=== PATIENT | male | born 1955 | race Caucasian/White ===

== ENCOUNTER → 2017-03-16 | Outpatient (CLI) | payer BC, OTHER ==
[~2017-03-16] MED LIST: AMLO10TA2 PO; BENA20TA2 PO; GABA300C10 PO; METF500T4 PO
[2017-03-16 10:46] LABS: HEMATOCRIT 47.5 % (39.2-51.8); HEMOGLOBIN 16.1 g/dL (13.7-18.0); WHITE BLOOD COUNT 7.5 x10^3/uL (3.4-10)
[2017-03-16 11:00] LABS: ASPARTATE AMINO TRANSFERASE 18 U/L (15-37); BLOOD UREA NITROGEN 13 mg/dL (7-18)
== END | disposition home or self-care (01) ==
LOC: STAR 09:15
PROVIDERS: ATTEND Orthopaedic Surgery
DX: Z01.818 Encounter for other preprocedural examination (principal); M17.12 Unilateral primary osteoarthritis, left knee; J45.909 Unspecified asthma, uncomplicated; E11.9 Type 2 diabetes mellitus without complications; M81.0 Age-related osteoporosis without current pathological fracture; R79.1 Abnormal coagulation profile
CPT/HCPCS: 36415; 80053; 83036; 85025; 85610; 85730; 87081; 87147; 93005

== ENCOUNTER 2017-03-25 05:22 | Inpatient (IN) | payer BC ==
[~2017-03-25] VITALS: Ht 177.8 cm; Wt 99.7 kg
[2017-03-25] MEDS ORDERED: LACTATED RINGERS 1,000 ML IV SCH (05:57)
[2017-03-25] MEDS ORDERED: VANCOMYCIN PER PHARMACY MC STA (06:01)
[2017-03-25 06:05] VITALS: BP 125/81
[2017-03-25] MEDS ORDERED: OxyconTIN ER 10 MG TAB.ER ONE (06:11)
[2017-03-25] MEDS ORDERED: DEXAMETHASONE 4 MG/ML, 1ML ONE (06:24)
[2017-03-25] MEDS ORDERED: SUCCINYLCHOLINE 20 MG/ML, 10ML ONE (06:24)
[2017-03-25] MEDS ORDERED: ONDANSETRON 2MG/ML, 2ML ONE (06:24)
[2017-03-25] MEDS ORDERED: PROPOFOL 10 MG/ML, 20ML ONE ×2 (06:24)
[2017-03-25] MEDS ORDERED: MIDAZOLAM 1 MG/ML, 2ML ONE (06:25)
[2017-03-25] MEDS ORDERED: FENTANYL PF 250 MCG/5ML ONE (06:25)
[2017-03-25] MEDS ORDERED: VANCOMYCIN 1,900 MG in SODIUM CHLORIDE 0.9% 250 ML IV ONE (06:30)
[2017-03-25] MEDS ORDERED: OxyconTIN ER 10 MG TAB.ER PO ONE (06:30)
[2017-03-25] MEDS ORDERED: KETOROLAC 60 MG/2 ML ONE (06:39)
[2017-03-25] MEDS ORDERED: VANCOMYCIN 1,000 MG ONE (06:40)
[2017-03-25] MEDS ORDERED: ROPIvacaine/PF 0.5%, 30 ML ONE (06:40)
[2017-03-25] MEDS ORDERED: TRANEXAMIC ACID 100 MG/ML, 10ML ONE ×2 (06:40)
[2017-03-25] MEDS ORDERED: cloniDINE/PF 100 MCG/ML, 10 ML ONE (06:40)
[2017-03-25] MEDS ORDERED: SODIUM CHLORIDE 0.9% 50 ML ONE (06:40)
[2017-03-25] MEDS ORDERED: EPINEPHRINE 1 MG/ML, 1ML ONE (06:41)
[2017-03-25] MEDS ORDERED: MAGNESIUM HYDROXIDE 8%, 30ML UDC PO PRN (07:30)
[2017-03-25] MEDS ORDERED: DIPHENHYDRAMINE 50 MG CAPSULE PO PRN (07:30)
[2017-03-25] MEDS ORDERED: HYDROmorphone 1 MG/ML, 1ML IV PRN (07:30)
[2017-03-25] MEDS ORDERED: SENNA/DOCUSATE TABLET PO PRN (07:30)
[2017-03-25] MEDS ORDERED: ONDANSETRON 2MG/ML, 2ML IV PRN (07:30)
[2017-03-25] MEDS ORDERED: ACETAMINOPHEN 650 MG/20.3 ML UDC PO PRN (07:30)
[2017-03-25] MEDS ORDERED: BISACODYL 10 MG SUPP PR PRN (07:30)
[2017-03-25] MEDS ORDERED: SCOPOLAMINE PATCH, 1MG PATCH.TD72 TD ONE (07:30)
[2017-03-25] MEDS ORDERED: ZOLPIDEM 5MG TABLET PO PRN (07:30)
[2017-03-25] MEDS ORDERED: ONDANSETRON 4 MG TABLET PO PRN (07:30)
[2017-03-25] MEDS ORDERED: ROPIvacaine/PF 0.2%, 100ML 550 ML (check volume) INJ ONE (08:00)
[2017-03-25] MEDS ORDERED: LABETALOL 5MG/ML, 20ML IV PRN (08:00)
[2017-03-25] MEDS ORDERED: OXYcodone 5 MG/5 ML ORAL.SOL UDC PO PRN (08:00)
[2017-03-25] MEDS ORDERED: MIDAZOLAM 1 MG/ML, 2ML IV PRN (08:00)
[2017-03-25] MEDS ORDERED: ACETAMINOPHEN 325 MG TABLET PO PRN (08:00)
[2017-03-25] MEDS ORDERED: PROMETHAZINE 25 MG/ML, 1ML IV PRN (08:00)
[2017-03-25] MEDS ORDERED: ONDANSETRON 2MG/ML, 2ML IVPush PRN (08:00)
[2017-03-25] MEDS ORDERED: FENTANYL PF 100 MCG/2ML ONE ×2 (08:29→08:54)
[2017-03-25] MEDS ORDERED: ACETAMINOPHEN 650 MG/20.3 ML UDC ONE (08:54)
[2017-03-25] MEDS ORDERED: ACETAMINOPHEN 325 MG TABLET ONE (08:54)
[2017-03-25] MEDS ORDERED: TAMSULOSIN 0.4 MG CAP.ER.24H PO ONE (09:00)
[2017-03-25] MEDS: FENTANYL PF 100 MCG/2ML IV PRN ×2 (09:00→09:10)
[2017-03-25] MEDS: GABAPENTIN 300 MG CAPSULE PO SCH ×2 (09:00→20:43)
[2017-03-25] MEDS: HYDROmorphone 1 MG/ML, 1ML IV PRN ×2 (09:15→09:30)
[2017-03-25] MEDS ORDERED: HYDROmorphone 1 MG/ML, 1ML ONE (09:15)
[2017-03-25] MEDS ORDERED: ROPIvacaine/PF 0.2%, 20 ML ONE (09:32)
[2017-03-25] MEDS: INSULIN ASPART 100 UNITS/ML, PEN SQ-INSULIN SCH ×3 (11:00→20:58)
[2017-03-25] MEDS: NS + 20MEQ KCL 1,000 ML IV SCH ×2 (14:02→19:10)
[2017-03-25] MEDS: CEFAZOLIN PMX 2GM/50ML 50 ML IVPB SCH ×2 (14:02→22:22)
[2017-03-25] MEDS: HYDROcodone/APAP 5/325 TABLET PO PRN ×3 (14:03→22:56)
[2017-03-25] MEDS: DOCUSATE 100 MG CAPSULE PO SCH ×2 (14:03→20:43)
[2017-03-25 15:15] VITALS: BP 123/73
[2017-03-25] MEDS: ASPIRIN 81 MG TABLET EC PO SCH (18:41)
[2017-03-25 19:49] VITALS: BP 110/75
[2017-03-25] MEDS: OXYcodone IR 5MG TABLET PO PRN (20:43)
[2017-03-25] MEDS ORDERED: AMLODIPINE 5 MG TABLET PO SCH (21:00)
[2017-03-25] MEDS: BENAZEPRIL 20 MG TABLET PO SCH ×2 (21:46→22:56)
[2017-03-26 01:47] VITALS: BP 142/73
[2017-03-26 05:18] LABS: HEMATOCRIT 36.8 % (39.2-51.8); HEMOGLOBIN 12.6 g/dL (13.7-18.0)
[2017-03-26] MEDS ORDERED: DEXAMETHASONE 4 MG/ML, 1ML IVPush SCH (06:00)
[2017-03-26] MEDS: HYDROcodone/APAP 5/325 TABLET PO PRN (06:05)
[2017-03-26] MEDS: INSULIN ASPART 100 UNITS/ML, PEN SQ-INSULIN SCH (06:05)
[2017-03-26] MEDS: ASPIRIN 81 MG TABLET EC PO SCH (06:05)
[2017-03-26 07:20] VITALS: BP 104/61
[2017-03-26] MEDS ORDERED: PNEUMOCOCCAL 23 VACCINE IM-VACC ONE (07:30)
[2017-03-26] MEDS: NS + 20MEQ KCL 1,000 ML IV SCH (08:06)
[2017-03-26] MEDS: GABAPENTIN 300 MG CAPSULE PO SCH (08:33)
[2017-03-26] MEDS: DOCUSATE 100 MG CAPSULE PO SCH (08:34)
[2017-03-26] MEDS ORDERED: OXYC5TAB3 PO (09:07)
[2017-03-26] MEDS ORDERED: TRAM50TA2 PO (09:10)
[2017-03-26] MEDS ORDERED: MELO7.5T5 PO (09:11)
[2017-03-26] MEDS ORDERED: ASPI-496 PO (09:12)
[2017-03-26] MEDS ORDERED: ASPI-650 PO (09:12)
[2017-03-26] MEDS ORDERED: DIAZ5TAB PO (09:14)
[2017-03-26] MEDS: OXYcodone IR 5MG TABLET PO PRN (10:36)
== END 2017-03-26 10:50 | disposition home or self-care (01) | DRG 470 ==
LOC: ORIP 05:22 → 4NOR 10:44
PROVIDERS: ADMIT Orthopaedic Surgery; ATTEND Orthopaedic Surgery
PROC: 0SRD069 Replacement of Left Knee Joint with Oxidized Zirconium on Polyethylene Synthetic Substitute, Cemented, Open Approach (ICD-10-PCS; principal; 2017-03-25 07:00)
DX: M17.12 Unilateral primary osteoarthritis, left knee (principal); E11.9 Type 2 diabetes mellitus without complications; I10 Essential (primary) hypertension; J45.909 Unspecified asthma, uncomplicated; M21.162 Varus deformity, not elsewhere classified, left knee; Z23 Encounter for immunization
CPT/HCPCS: 36415; 82962; 85014; 85018; 90732; C1713; J0171; J0690; J1100; J1170; J1815; J1885; J2250; J2405; J2704; J2795; J3010; J3370; J3480; C1776; J0330; J0735; J7050